=== PATIENT | female | born 1995 | race Asian ===

== ENCOUNTER → 2023-12-28 | Outpatient (CLI) | payer OTHER ==
[2023-12-28 08:43] LABS: FREE T4 (FREE THYROXINE) 1.06 ng/dL (0.76-1.46); THYROID STIMULATING HORMONE 2.08 uIU/mL (0.36-3.74)
== END | disposition home or self-care (01) ==
LOC: MSR 07:37
PROVIDERS: ATTEND Chiropractor
DX: E07.9 Disorder of thyroid, unspecified (principal); M13.80 Other specified arthritis, unspecified site
CPT/HCPCS: 72220; 73521; 84439; 84443; 84481